=== PATIENT | female | born 1960 | race Caucasian/White ===

== ENCOUNTER 2020-10-08 14:34 | Outpatient (REF) | payer SELFPAY ==
--- NOTE | 2020-10-08 14:00 | PAPFT_PTH ---
PATIENT: Doris Bautista LOC: [facility] U#:[id number] AGE/SX: 60/F ROOM: RE10/08/[address]: Shanon Hickey : 1960 BED: DIS: 10/08/2020 SPEC #: [id number] RECD: 10/11/20 13:05 STATUS: LOBO REQ #: [id number] CORTNEY: 10/08/20 14:[address]: Shanon Hickey DEPT: [facility] Cytology RECD BY: Ellen Calderon ENTERED: 10/11/20 13:05 SP TYPE: PAPFT OTHR DR: Andrew Reynaga Tissues: 1 - CX/ENDOCX FOR PAP SMEARS Procedures: PAP THIN PREP/[facility] Screening HPV DNA PROBE Comments: [id number]
== END 2020-10-08 14:35 | disposition home or self-care (01) ==
LOC: NCHCN 14:34
PROVIDERS: Visit Provider Family Medicine
DX: Z00.00 Encounter for general adult medical examination without abnormal findings (principal); Z12.4 Encounter for screening for malignant neoplasm of cervix; Z11.51 Encounter for screening for human papillomavirus (HPV)
CPT/HCPCS: 88142; 87624